=== PATIENT | female | born 1990 | race Caucasian/White ===

== ENCOUNTER 2020-11-14 19:37 | Emergency (ER) | payer OTHER, SELFPAY ==
[2020-11-14 19:48] VITALS: BP 104/71; PULSE 78; RESP 18; TEMP 36.3; O2SAT 99
[2020-11-14] MEDS: methylPREDNISolone SOD SUCC 125 MG VIAL IV PUSH (20:58)
[2020-11-14] MEDS: FAMOTIDINE 20 MG/2 ML VIAL IV PUSH (20:59)
[2020-11-14] MEDS: diphenhydrAMINE HCl INJ 50 MG/ML VIAL 25 MG IV PUSH (20:59)
[2020-11-14 21:00] VITALS: BP 95/75; PULSE 72; RESP 15; O2SAT 98
--- NOTE | 2020-11-14 21:41 | ED.GENADULT ---
HPI - General Adult General Chief complaint: Allergic Reaction Stated complaint: 21 wks , throat tight, poss allergic rxn Time Seen by Provider: 11/14/20 20:37 History of Present Illness HPI narrative: Patient is 20 with patient presents the emergency department with chief complaint of allergic reaction. Patient reports that she was eating dinner and started having itching in her mouth tongue and her right ear. Patient states she felt as though her tongue was a little swollen afterwards and took a 25 mg of Benadryl patient reports symptoms have been gradually improving and that currently she is not having any shortness of breath he still has some itching sensation in her mouth. The patient denies wheezing denies shortness of breath denies angioedema. Related Data Home Medications Medication Instructions Recorded Confirmed Daily 11/14/20 Allergies Allergy/AdvReac Type Severity Reaction Status Date / Time No Known Allergies Allergy Verified 11/14/20 19:52 Review of Systems Review of Systems: Narrative: A 10 system review of systems was completed on the patient and is negative except for what is stated in the HPI. Nursing and ancillary documentation was reviewed. [facility] Social History Social History Gender identity (if verbalized by the patient): Female Comments Patient has no significant past medical history Social history the patient is currently 21 weeks denies illicit drug use and denies smoking Exam Narrative: Exam Narrative: GENERAL: Well-appearing, well-nourished, and in no acute distress. HEAD: Normocephalic, atraumatic. EYES: PERRLA and EOMI. ENT: Nares clear, no rhinorrhea or epistaxis. Mucous membranes moist. NECK: Supple. CHEST: Clear to auscultation. No respiratory distress. HEART: Regular rate and rhythm. No murmur heard. Normal peripheral pulses. ABDOMEN: Soft, nontender, nondistended, normal active bowel sounds. EXTREMITIES: Normal range of motion. No edema. SKIN: Warm, dry, no rash. NEURO: No focal deficits. Alert and oriented x3. PSYCH: Normal mood and affect. Course Vital Signs Vital signs: Vital Signs Temperature 36.3 C L 11/14/20 19:48 Pulse Rate 78 11/14/20 19:48 Respiratory Rate 18 11/14/20 19:48 Blood Pressure 104/71 11/14/20 19:48 Pulse Oximetry 99 11/14/20 19:48 Temperature 36.3 C L 11/14/20 19:48 Pulse Rate 72 11/14/20 21:00 Respiratory Rate 15 11/14/20 21:00 Blood Pressure 95/75 L 11/14/20 21:00 Pulse Oximetry 98 11/14/20 21:00 Medical Decision Making Vital Signs Vital Signs: Vital Signs Temperature 36.3 C L 11/14/20 19:48 Pulse Rate 78 11/14/20 19:48 Respiratory Rate 18 11/14/20 19:48 Blood Pressure 104/71 11/14/20 19:48 Pulse Oximetry 99 11/14/20 19:48 Temperature 36.3 C L 11/14/20 19:48 Pulse Rate 72 11/14/20 21:00 Respiratory Rate 15 11/14/20 21:00 Blood Pressure 95/75 L 11/14/20 21:00 Pulse Oximetry 98 11/14/20 21:00 Discharge Plan Discharge Clinical Impression: Allergic reaction Qualifiers: Encounter type: initial encounter Qualified Code(s): T78.40XA - Allergy, unspecified, initial encounter Patient Disposition: Home, Self-Care Condition: Stable Instructions: Antibiotic Form, General Allergic Reaction (ED) Prescriptions: New methylprednisolone [Medrol (Mario Alberto)] 4 mg tablets,dose pack See Rx Instructions .ROUTE .COMPLEX Qty: 21 RF: 0 No Action Daily RF: 0 Follow-up/Referrals: Jay,LETY Lerma [Primary Care Provider] - Time of Disposition: 21:43
[2020-11-14 22:18] VITALS: BP 104/73; PULSE 76; RESP 16; TEMP 36.8; O2SAT 100
== END 2020-11-14 22:19 | disposition home or self-care (01) ==
LOC: ANHED 22:05
PROVIDERS: Emergency Provider Emergency Medicine; PCP Registered Nurse
DX: O26.892 Other specified pregnancy related conditions, second trimester (principal); T78.40XA Allergy, unspecified, initial encounter; Z3A.21 21 weeks gestation of pregnancy
CPT/HCPCS: 96374; 96375; 99284; J1200; J2930